=== PATIENT | female | born 1960 | race Two or more races ===

== ENCOUNTER 2017-09-29 13:47 | Inpatient (IN) | payer OTHER ==
[~2017-09-29] VITALS: Ht 162.6 cm; Wt 104.3 kg
[2017-09-29] MEDS ORDERED: LOSARTAN-HCTZ1 EAC1 PO (14:10)
[2017-10-09] MEDS ORDERED: DOXYCYCLINE HY100 MG PO (12:48)
[2017-10-09] MEDS ORDERED: INTESTINEX680 M1 PO (12:49)
[2017-10-09] MEDS ORDERED: LOSARTAN-HCTZ1 EAC1 PO (12:49)
== END 2017-10-09 15:30 | disposition home or self-care (01) | DRG 603 ==
LOC: ER 13:47 → SEC-K 09-30 11:45 → MEDJ 09-30 11:45 → MEDI 10-08 20:07 → MEDJ 10-08 22:47
PROC: BP3 Imaging, Non-Axial Upper Bones, Magnetic Resonance Imaging (MRI) (ICD-10-PCS; principal; 2017-09-30)
PROC: 8E0ZXY6 Isolation (ICD-10-PCS; 2017-09-30)
PROC: 05H433Z Insertion of Infusion Device into Left Innominate Vein, Percutaneous Approach (ICD-10-PCS; 2017-10-05)
DX: L02.413 Cutaneous abscess of right upper limb (principal); I10 Essential (primary) hypertension; L03.113 Cellulitis of right upper limb; B37.2 Candidiasis of skin and nail; B95.61 Methicillin susceptible Staphylococcus aureus infection as the cause of diseases classified elsewhere
CPT/HCPCS: 73218